=== PATIENT | female | born 1960 | race Hispanic/Latino ===

== ENCOUNTER 2017-09-23 16:58 | Inpatient (IN) | payer BC ==
--- NOTE | 2017-09-23 18:03 | RAD ---
PROCEDURE: CHEST RADIOGRAPH, 1 VIEW HISTORY: chest pain COMPARISON: None available. FINDINGS: LUNGS: Clear. PLEURA: No pneumothorax or pleural fluid seen. CARDIOVASCULAR: Normal. OSSEOUS STRUCTURES: No significant abnormalities. VISUALIZED UPPER ABDOMEN: Normal. OTHER FINDINGS: None. IMPRESSION: No active disease.
[2017-09-23 18:15] LABS: BASO % 0.3 % (0.0-2.0); EOS % 0.1 % (0.0-4.0); HEMATOCRIT 41.4 % (34.0-47.0); LYMPH # 0.9 K/uL (1.0-4.3); LYMPH % 6.8 % (20.0-40.0); MEAN CELL VOLUME 84.7 fl (81.0-99.0); MEAN CORPUSCULAR HEMOGLOBIN 28.3 pg (27.0-31.0); MEAN CORPUSCULAR HGB CONC 33.4 g/dL (33.0-37.0); MONO # 0.5 K/uL (0.0-0.8); MONO % 3.8 % (0.0-10.0); NEUT # 11.7 K/uL (1.8-7.0); PLATELET COUNT 284 K/uL (130-400); WHITE BLOOD COUNT 13.1 K/uL (4.8-10.8)
--- NOTE | 2017-09-23 18:20 | ED PDOC ---
HPI: Chest Pain Time Seen by Provider: 09/23/17 17:12 Chief Complaint (Nursing): Chest Pain Chief Complaint (Provider): Chest Pain History Per: Patient History/Exam Limitations: no limitations Onset/Duration Of Symptoms: Days (x1) Current Symptoms Are (Timing): Still Present Quality: "Pain" Additional Complaint(s): Anya Garcia, a 57 year old female with a past medical history of hypertension presents to the ED complaining of anterior chest pain which started yesterday. As per patient the pain stopped but returned again today. She states that the pain radiates to her right shoulder and she is also having some back pain. The patient reports that she is currently getting over a cold so she has a residual cough. Denies syncope, leg swelling and palpitations. PMD: Edward Vazquez V - Risk Factors TAD Risk Factors: Pos: Hypertension Past Medical History Reviewed: Historical Data, Nursing Documentation, Vital Signs Vital Signs: Last Vital Signs Temp 97.9 F 09/23/17 17:07 Pulse 67 09/23/17 19:56 Resp 18 09/23/17 19:56 BP 105/63 09/23/17 19:56 Pulse Ox 99 09/23/17 21:18 - Medical History PMH: HTN - Surgical History Surgical History: No Surg Hx - Family History Family History: States: Unknown Family Hx - Social History Current smoker - smoking cessation education provided: No Ex-Smoker (has not smoked in the last 12 months): No Alcohol: None Drugs: Denies - Allergies Allergies/Adverse Reactions: Allergies Allergy/AdvReac Type Severity Reaction Status Date / Time No Known Allergies Allergy Verified 01/03/17 19:32 SIA Risk Score for UA/NSTEMI - SIA Risk Score Age > 64: NO 3 or more CAD Risk Factors: NO Known CAD (Stenosis greater than 50%): NO Aspirin use in past 7 days: NO Severe Angina: YES EKG ST changes greater than 0.5mm: NO Positive Cardiac Marker: NO SIA Score: 1 Risk %: 5% Wells Criteria for PE - Wells Criteria for Pulmonary Embolism Clinical Signs and Symptoms of DVT: No P.E is #1 Diagnosis, or Equally Likely: No Heart Rate >100: No Immobilization at least 3 days;Surgery previous 4 weeks: No Previous, objectively diagnosed PE or DVT: No Hemoptysis: No Malignancy w/treatment within 6 months, or palliative: No Total Score: 0 Review of Systems ROS Statement: Except As Marked, All Systems Reviewed And Found Negative Cardiovascular: Positive for: Chest Pain (anterior radiates to right shoulder). Negative for: Palpitations Musculoskeletal: Positive for: Back Pain, Other (no leg swelling) Neurological: Positive for: Dizziness Physical Exam - Reviewed Nursing Documentation Reviewed: Yes Vital Signs Reviewed: Yes - Physical Exam Appears: Positive for: Non-toxic, No Acute Distress Head Exam: Positive for: ATRAUMATIC, NORMAL INSPECTION, NORMOCEPHALIC Skin: Positive for: Normal Color, Warm, Dry. Negative for: Rash Eye Exam: Positive for: Normal appearance, EOMI, PERRL. Negative for: Nystagmus ENT: Positive for: Normal ENT Inspection Neck: Positive for: Normal, Painless ROM, Supple Cardiovascular/Chest: Positive for: Regular Rate, Rhythm, Chest Non Tender. Negative for: Tachycardia Respiratory: Positive for: Normal Breath Sounds. Negative for: Crackles, Rales , Rhonchi, Stridor, Wheezing, Respiratory Distress Gastrointestinal/Abdominal: Positive for: Normal Exam, Bowel Sounds, Soft. Negative for: Tenderness, Guarding, Rebound Back: Positive for: Normal Inspection. Negative for: L CVA Tenderness, R CVA Tenderness Extremity: Positive for: Normal ROM, Capillary Refill (capilary refills normal) . Negative for: Tenderness, Deformity, Swelling Neurologic/Psych: Positive for: Alert, Oriented, Gait - Laboratory Results Result Diagrams: 09/23/17 18:00 09/23/17 18:00 - ECG ECG Rhythm: Positive for: Normal QRS, Normal ST Segment, Sinus Bradycardia (58 bpm) O2 Sat by Pulse Oximetry: 99 (RA) Pulse Ox Interpretation: Normal - Physician Consult Information Time Consulting Physican Contacted: 19:40 Physician Contacted: Nba Schwartz - Core Measure Core Measure Indicators: Chest Pain - Critical Care Total Time (In Min): 30 Medical Decision Making Medical Decision Makin Initial Impression 57 y/o female presenting with anterior chest pain differentials: ACS, Thoracic/ Aortic dissection Initial Plan: * EKG * BMP * Troponin I * CBC * D-Dimer * CXR * Reevaluation EKG Performed: * Sinus bradycardia * Normal QRS * No ST changes * Rate 58 1943 - Reevaluation Troponin elevated. EKG repeated: NSR * normal QRS * Normal ST segments * T wave inversion in V2 * rate [address] Lee (PMD and superintendent measurement) who also reviewed the patient's EKG and recommends treatment for NSTEMI and also recommends giving the patient plavix, aspirin, lovenox and nitroglycerin. Patient will be admitted to ICU for cardiac cath tomorrow. Admission was discussed with Dr. Schwartz hospitalist/metalizing machine operator. Scribe Attestation Documented by Adeline Beckham acting as a scribe for Angeles Foreman MD. Provider Attestation All medical record entries made by the Scribe were at my direction and personally dictated by me. I have reviewed the chart and agree that the record accurately reflects my personal performance of the history, physical exam, medical decision making, and the department course for this patient. I have also personally directed, reviewed, and agree with the discharge instructions and disposition. Disposition - Clinical Impression Clinical Impression: NSTEMI (non-ST elevated myocardial infarction) - Patient ED Disposition Is Patient to be Admitted: Yes Discussed With DrAnyi: Edward Rodriguez Doctor Will See Patient In The: Hospital Counseled Patient/Family Regarding: Studies Performed, Diagnosis - Disposition Disposition Time: 19:43 Condition: GUARDED - Pt Status Changed To: Hospital Disposition Of: Inpatient - Admit Certification Admit to Inpatient:: After my assessment, the patient will require hospitalization for at least two midnights. This is because of the severity of symptoms shown, intensity of services needed, and/or the medical risk in this patient being treated as an outpatient. - POA Present On Arrival: None
[2017-09-23 18:27] LABS: BLOOD UREA NITROGEN 14 mg/dl (7-17); CALCIUM 9.5 mg/dL (8.4-10.2); CARBON DIOXIDE 26 mmol/L (22-30); CHLORIDE 106 mmol/L (98-107); GFR AFRICAN-AMERICAN > 60; GLUCOSE,RANDOM 108 mg/dL (65-105); POTASSIUM 4.3 MMOL/L (3.6-5.0); SODIUM 141 mmol/l (132-148)
[2017-09-23] MEDS ORDERED: Enoxaparin 100 mg Syringe SC STA (19:34)
--- NOTE | 2017-09-23 19:49 | CP.PCM.CON ---
History of Present Illness - History of Present Illness History of Present Illness: Reason for Consult: Critical care management Chief Complaint: Chest Pain The Patient was seen and examined in the ED HPI: 57 years old female with no significant past medical hx comes with 2 days of nonspecific chest pain, localized about the distal sternum and radiating to the right shoulder and upper right back. Began at rest but ceased after some time. the pain was present when she awoke in the next AM and continued. It was associated with nausea and she tried to make herself vomit by using her finger. No SOB nor Diaphoresis She has no hx of Diabetes, HTN, she is a former smoker and has family hx of heart attack. She also is recovering from a common cold. 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 absent: Anorexia, Chills, Fever, Headache, Lethargy - EENT Eyes: Requires Corrective Lenses. absent: Blurred Vision, Diplopia, Floaters, Sees Flashes Ears: absent: Decreased Hearing, Ear Discharge, Tinnitus Nose/Mouth/Throat: absent: Epistaxis, Nasal Congestion, Nasal Discharge, Sinus Pain, Sinus Pressure - Cardiovascular Cardiovascular: Chest Pain at Rest. absent: Dyspnea, Edema, Lightheadedness - Respiratory Respiratory: absent: Cough, Dyspnea on Exertion, Wheezing, Stridor - Gastrointestinal Gastrointestinal: Nausea, Vomiting. absent: Abdominal Pain, Constipation, Diarrhea - Genitourinary Genitourinary: absent: Dysuria, Flank Pain, Hematuria, Urinary Frequency - Musculoskeletal Musculoskeletal: absent: Arthralgias, Back Pain, Muscle Weakness Additional comments: Pain to both thighs - Integumentary Integumentary: absent: Pruritus, Rash, Skin Ulcer, Sores, Striae, Swelling - Neurological Neurological: absent: Confusion, Dizziness, Focal Weakness, Weakness - Psychiatric Psychiatric: Anxiety. absent: Depression, Panic Attacks - Endocrine Endocrine: absent: Palpitations, Polydipsia, Polyphagia, Polyuria - Hematologic/Lymphatic Hematologic: absent: Easy Bleeding, Easy Bruising Past Patient History - Past Medical History & Family History Past Medical History?: Yes - Past Social History Smoking Status: Former Smoker Chewing Tobacco Use: No Cigar Use: No Alcohol: None Drugs: Denies Home Situation {Lives}: With Family - CARDIAC Hx Hypertension: Yes - PULMONARY Hx Respiratory Disorders: No - NEUROLOGICAL Hx Neurological Disorder: No - HEENT Hx HEENT Problems: No - RENAL Hx Chronic Kidney Disease: No - ENDOCRINE/METABOLIC Hx Endocrine Disorders: No - HEMATOLOGICAL/ONCOLOGICAL Hx Blood Disorders: No - INTEGUMENTARY Hx Dermatological Problems: No - MUSCULOSKELETAL/RHEUMATOLOGICAL Hx Musculoskeletal Disorders: No - GASTROINTESTINAL Hx Gastrointestinal Disorders: No - GENITOURINARY/GYNECOLOGICAL Hx Genitourinary Disorders: No - PSYCHIATRIC Hx Psychophysiologic Disorder: No Hx Substance Use: No - SURGICAL HISTORY Hx Surgeries: No - ANESTHESIA Hx Anesthesia: No Meds Allergies/Adverse Reactions: Allergies Allergy/AdvReac Type Severity Reaction Status Date / Time No Known Allergies Allergy Verified 01/03/17 19:32 - Medications Medications: Current Medications Clopidogrel Bisulfate (Plavix) 300 mg PO ONCE ONE Stop: 09/23/17 19:35 Enoxaparin Sodium (Lovenox) 90 mg SC STAT STA PRN Reason: Protocol Stop: 09/23/17 19:35 Physical Exam - Constitutional Appears: No Acute Distress - Head Exam Head Exam: ATRAUMATIC, NORMAL INSPECTION, NORMOCEPHALIC - Eye Exam Eye Exam: EOMI, Normal appearance Pupil Exam: NORMAL ACCOMODATION, PERRL - ENT Exam ENT Exam: Mucous Membranes Moist, Normal Exam, Normal External Ear Exam, Normal Oropharynx - Neck Exam Neck exam: Positive for: Full Rom, Normal Inspection. Negative for: Lymphadenopathy, Tenderness - Respiratory Exam Respiratory Exam: Clear to Auscultation Bilateral. absent: Rales, Rhonchi, Wheezes - Cardiovascular Exam Cardiovascular Exam: REGULAR RHYTHM, RRR, +S1, +S2. absent: Gallop, JVD - GI/Abdominal Exam GI & Abdominal Exam: Normal Bowel Sounds, Soft. absent: Mass, Organomegaly, Tenderness - Rectal Exam Rectal Exam: Deferred - Extremities Exam Extremities exam: Positive for: full ROM, normal inspection. Negative for: calf tenderness, tenderness - Back Exam Back exam: NORMAL INSPECTION. absent: CVA tenderness (R) - Neurological Exam Neurological exam: Alert, CN II-XII Intact, Oriented x3, Reflexes Normal - Psychiatric Exam Psychiatric exam: Normal Affect, Normal Mood - Skin Skin Exam: Dry, Normal Color, Urticaria, Warm Results - Vital Signs Recent Vital Signs: Last Vital Signs Temp 97.9 F 09/23/17 17:07 Pulse 71 09/23/17 19:20 Resp 18 09/23/17 19:20 BP 140/83 09/23/17 19:20 Pulse Ox 99 09/23/17 19:48 - Labs Result Diagrams: 09/23/17 18:00 09/23/17 18:00 Labs: Laboratory Results - last 24 hr 09/23/17 09/23/17 09/23/17 18:00 18:00 18:00 WBC 13.1 H RBC 4.90 Hgb 13.8 Hct 41.4 MCV 84.7 MCH 28.3 MCHC 33.4 RDW 13.0 Plt Count 284 MPV 8.0 Neut % (Auto) 89.0 H Lymph % (Auto) 6.8 L [place] % (Auto) 3.8 Eos % (Auto) 0.1 Baso % (Auto) 0.3 Neut # 11.7 H Lymph # 0.9 L [place] # 0.5 Eos # 0.0 Baso # 0.0 D-Dimer, Quantitative 237 H Sodium 141 Potassium 4.3 Chloride 106 Carbon Dioxide 26 Anion Gap 13 BUN 14 Creatinine 0.7 Est GFR ( Amer) > 60 Est GFR (Non-Af Amer) > 60 Random Glucose 108 H Calcium 9.5 Troponin I 4.5700 H* - EKG Data EKG comments: NSR 61/min Peaked Ts in II; III; aVF T inversion in V1-2 - Imaging and Cardiology Chest x-ray Status: Image reviewed by me, Report reviewed by me Additional comment: No infiltrates Assessment & Plan - Assessment and Plan (Free Text) Assessment: #. NSTEMI #. Elevated D Dimer Plan: 57 years old female with no significant past medical hx comes with 2 days of nonspecific chest pain, localized about the distal sternum and radiating to the right shoulder and upper right back. Began at rest but ceased after some time. the pain was present when she awoke in the next AM and continued. It was associated with nausea, no Diaphoresis nor SOB. #. NSTEMI - Consult Dr Rodriguez Cardiology - Plavix - ASA - Lovenox Therapeutic 90mg Sub Q q 12 H -Metoprolol - NTG - Lipitor - Lipid Panel - Follow ECHO - Follow Repeated Troponin #. Elevated D Dimer Could be caused by the NSTEMI. Patient also has pains to both calf muscles - Venous doppler to both lower extremities #. Neutrpophylic Leukocytosis is reactive - Follow CBC #. DVT prophylaxis, with SCD. patient is on Lovenox #. Code Status: Full - Date & Time Date: 09/23/17 Time: 19:49
[2017-09-23 19:59] LABS: NEUTROPHIL 86 % (42-75); REACTIVE LYMPHOCYTES 1 % (0-0); TOTAL CELLS COUNTED 100
[2017-09-23] MEDS ORDERED: Nitroglycerin 2% 15 INCH/30 GM TUBE TOP SCH (20:45)
[2017-09-23] MEDS: Nitroglycerin 2% Ointment Foilpak UD TOP SCH (22:36)
[2017-09-24 02:09] VITALS: BMI 30.9
[2017-09-24] MEDS: Nitroglycerin 2% Ointment Foilpak UD TOP SCH (04:45)
[2017-09-24 05:55] LABS: ALB/GLOB RATIO 1.4 (1.0-2.1); ALKALINE PHOSPHATASE 73 U/L (38-126); ALT/SGPT 52 U/L (9-52); AST/SGOT 102 U/L (14-36); BILIRUBIN,TOTAL 0.5 mg/dl (0.2-1.3); BLOOD UREA NITROGEN 13 mg/dl (7-17); CARBON DIOXIDE 26 mmol/L (22-30); CHLORIDE 109 mmol/L (98-107); CHOLESTEROL 184 mg/dL (0-199); GFR AFRICAN-AMERICAN > 60; GLUCOSE,RANDOM 112 mg/dL (65-105); POTASSIUM 3.8 MMOL/L (3.6-5.0); SODIUM 144 mmol/l (132-148); TOTAL PROTEIN 6.7 G/DL (6.3-8.2)
[2017-09-24 05:57] LABS: BASO % 0.4 % (0.0-2.0); EOS # 0.1 K/uL (0.0-0.7); EOS % 0.6 % (0.0-4.0); LYMPH # 1.8 K/uL (1.0-4.3); MEAN CELL VOLUME 84.9 fl (81.0-99.0); MEAN CORPUSCULAR HEMOGLOBIN 28.4 pg (27.0-31.0); MEAN CORPUSCULAR HGB CONC 33.5 g/dL (33.0-37.0); MEAN PLATELET VOLUME 8.1 fl (7.2-11.7); MONO # 0.7 K/uL (0.0-0.8); MONO % 6.7 % (0.0-10.0); NEUT # 7.4 K/uL (1.8-7.0); NEUT % 74.3 % (50.0-75.0); NRBC % 0.1 % (0.0-0.0); RED CELL DISTRIBUTION WIDTH 12.7 % (11.5-14.5); WHITE BLOOD COUNT 9.9 K/uL (4.8-10.8)
[2017-09-24] MEDS ORDERED: Pneumococcal 23-Valent Vaccine IM ONE (07:23)
[2017-09-24] MEDS ORDERED: Enoxaparin 100 mg Syringe SC SCH (09:00)
--- NOTE | 2017-09-24 09:12 | CP.PCM.HP ---
History of Present Illness - History of Present Illness History of Present Illness: This 57-year- old female came into the emergency room after having had a retrosternal discomfort for approximately 24 hours which waxed and waned over this. And often radiated to her back and was accompanied by severe nausea and occasional retching. There is no prior history of hypertension or diabetes. She's never been a smoker. Her mother had coronary artery disease requiring coronary bypass graft surgery. The patient is physically quite active and has never experienced any effort related chest pain. She denies any chronic illnesses and has not required repeated hospitalizations. At this point the chest discomfort has virtually subsided. She denies any palpitations or shortness of breath and is able to lie virtually flat and speak comfortably. Physical examination shows a young female is alert awake and coherent and afebrile breeds at 14-16 breaths per minutes and has a heart rate of 64 bpm and regular. Her blood pressure was 124/70 mmHg. Her jugular venous pressure was not elevated and there was no edema over her lower extremities. Her extremities were warm nailbeds were pink and there was no central or peripheral cyanosis. The apex was not palpable the first and second heart sounds were normal. There was no gallop there were no rales there was no pericardial rub. Abdomen was soft and the liver and spleen are not palpable. Her electro-cardiogram at admission shows sinus rhythm with mildly inverted T waves in V1 and V2 which over the next couple of hours shows further inversion and prominent T waves and finally this morning they electro-cardiogram shows sinus rhythm with deeply inverted T waves in V1 and V2 and V3 along with aVL. The R waves in V1 and V2 are virtually absent. Her troponin levels are elevated. BUN/creatinine and electrolytes are essentially normal. Her CBC is satisfactory. Impression: Non-ST elevation myocardial infarction involving anteroseptal region probably represents LAD involvement. The patient at this juncture is hemodynamically stable and chest pain free. She has received aspirin and Plavix and got a dose of Lovenox last night. She has received oral beta blockade as well. I have explained to her the urgent need for early coronary angiography which has been arranged for this morning. Present on Admission - Present on Admission Any Indicators Present on Admission: No Past Patient History - Past Medical History & Family History Past Medical History?: Yes - Past Social History Smoking Status: Former Smoker Chewing Tobacco Use: No Cigar Use: No Alcohol: None Drugs: Denies Home Situation {Lives}: With Family - CARDIAC Hx Hypertension: Yes - PULMONARY Hx Respiratory Disorders: No - NEUROLOGICAL Hx Neurological Disorder: No - HEENT Hx HEENT Problems: No - RENAL Hx Chronic Kidney Disease: No - ENDOCRINE/METABOLIC Hx Endocrine Disorders: No - HEMATOLOGICAL/ONCOLOGICAL Hx Blood Disorders: No - INTEGUMENTARY Hx Dermatological Problems: No - MUSCULOSKELETAL/RHEUMATOLOGICAL Hx Musculoskeletal Disorders: No - GASTROINTESTINAL Hx Gastrointestinal Disorders: No - GENITOURINARY/GYNECOLOGICAL Hx Genitourinary Disorders: No - PSYCHIATRIC Hx Psychophysiologic Disorder: No Hx Substance Use: No - SURGICAL HISTORY Hx Surgeries: No - ANESTHESIA Hx Anesthesia: No Meds Allergies/Adverse Reactions: Allergies Allergy/AdvReac Type Severity Reaction Status Date / Time No Known Allergies Allergy Verified 01/03/17 19:32 Results - Vital Signs Recent Vital Signs: Last Vital Signs Temp 98.3 F 09/24/17 04:00 Pulse 52 L 09/24/17 06:00 Resp 16 09/24/17 06:00 BP 112/58 L 09/24/17 06:00 Pulse Ox 98 09/24/17 06:00 - Labs Result Diagrams: 09/24/17 04:30 09/24/17 04:30 Labs: Laboratory Results - last 24 hr 09/23/17 09/23/17 09/23/17 18:00 18:00 18:00 WBC 13.1 H RBC 4.90 Hgb 13.8 Hct 41.4 MCV 84.7 MCH 28.3 MCHC 33.4 RDW 13.0 Plt Count 284 MPV 8.0 Neut % (Auto) 89.0 H Lymph % (Auto) 6.8 L [place] % (Auto) 3.8 Eos % (Auto) 0.1 Baso % (Auto) 0.3 Neut # 11.7 H Lymph # 0.9 L [place] # 0.5 Eos # 0.0 Baso # 0.0 Neutrophils % (Manual) 86 H Lymphocytes % (Manual) 11 L Reactive Lymphs % 1 H Monocytes % (Manual) 2 Platelet Estimate Normal RBC Morphology Normal D-Dimer, Quantitative 237 H Sodium 141 Potassium 4.3 Chloride 106 Carbon Dioxide 26 Anion Gap 13 BUN 14 Creatinine 0.7 Est GFR ( Amer) > 60 Est GFR (Non-Af Amer) > 60 Random Glucose 108 H Calcium 9.5 Total Bilirubin AST ALT Alkaline Phosphatase Troponin I 4.5700 H* Total Protein Albumin Globulin Albumin/Globulin Ratio Triglycerides Cholesterol LDL Cholesterol Direct HDL Cholesterol 09/24/17 09/24/17 04:30 04:30 WBC 9.9 RBC 4.60 Hgb 13.1 Hct 39.0 MCV 84.9 MCH 28.4 MCHC 33.5 RDW 12.7 Plt Count 269 MPV 8.1 Neut % (Auto) 74.3 Lymph % (Auto) 18.0 L [place] % (Auto) 6.7 Eos % (Auto) 0.6 Baso % (Auto) 0.4 Neut # 7.4 H Lymph # 1.8 [place] # 0.7 Eos # 0.1 Baso # 0.0 Neutrophils % (Manual) Lymphocytes % (Manual) Reactive Lymphs % Monocytes % (Manual) Platelet Estimate RBC Morphology D-Dimer, Quantitative Sodium 144 Potassium 3.8 Chloride 109 H Carbon Dioxide 26 Anion Gap 13 BUN 13 Creatinine 0.7 Est GFR ( Amer) > 60 Est GFR (Non-Af Amer) > 60 Random Glucose 112 H Calcium 9.0 Total Bilirubin 0.5 AST 102 H ALT 52 Alkaline Phosphatase 73 Troponin I 10.3000 H* Total Protein 6.7 Albumin 3.9 Globulin 2.8 Albumin/Globulin Ratio 1.4 Triglycerides 138 Cholesterol 184 LDL Cholesterol Direct 104 HDL Cholesterol 56
--- NOTE | 2017-09-24 19:09 | CP.PCM.PN ---
Subjective - Date & Time of Evaluation Date of Evaluation: 09/24/17 Time of Evaluation: 19:10 - Subjective Subjective: Patient is 57 Years old Female with no significant past medical hx Who presented with 2 days of nonspecific chest pain, localized about the distal sternum and radiating to the right shoulder and upper right back. Admitted to the ICU for NSTMI Patient was transfer to [facility] early this morning before I examined her, Patient underwent cardiac cath and will stay there overnight. Objective - Vital Signs/Intake and Output Vital Signs (last 24 hours): Temp Pulse Resp BP Pulse Ox 98.6 F 55 L 21 110/67 96 09/24/17 08:00 09/24/17 08:00 09/24/17 08:00 09/24/17 08:00 09/24/17 08:00 Intake and Output: 09/24/17 09/25/17 18:59 06:59 Intake Total 30 Balance 30 - Medications Medications: Current Medications Aspirin (Ecotrin) 81 mg PO DAILY [facility] Last Admin: 09/24/17 08:25 Dose: 81 mg Atorvastatin Calcium (Lipitor) 20 mg PO DAILY [facility] Last Admin: 09/24/17 10:18 Dose: Not Given Clopidogrel Bisulfate (Plavix) 75 mg PO DAILY [facility] Last Admin: 09/24/17 08:25 Dose: 75 mg Metoprolol Tartrate (Lopressor) 6.25 mg PO Q12 [facility] Last Admin: 09/24/17 10:18 Dose: Not Given Ondansetron HCl (Zofran Inj) 4 mg IVP Q4 PRN PRN Reason: Nausea/Vomiting Last Admin: 09/23/17 20:00 Dose: 4 mg - Labs Labs: 09/24/17 04:30 09/24/17 04:30
--- NOTE | 2017-09-25 12:05 | CARD ---
APPROVED REPORT EKG Measurement Heart [id number] <Conclusion> Sinus bradycardia Septal infarct, age undetermined Abnormal ECG
--- NOTE | 2017-09-25 12:08 | CARD ---
APPROVED REPORT EKG Measurement Heart [id number] <Conclusion> Sinus bradycardia with sinus arrhythmia Otherwise normal ECG
--- NOTE | 2017-09-26 08:25 | CP.PCM.PN ---
Subjective - Date & Time of Evaluation Date of Evaluation: 09/26/17 Time of Evaluation: 08:10 - Subjective Subjective: Has returned to [facility] from [facility] yesterday and has remained free of any symptoms Saw the pt yesterday in ICU around 5PM, she was stable Was sent to telemetry last evening Slept well, telemetry shows stable sinus rhythm at physiologic HR ( pt on Metoprolol) HR 62 BPM with BP 114/70 mm Hg No orthostatic changes JVP flat, no oedema over feet No rales, no gallop To have echocard today Have encouraged pt to ambulate Objective - Vital Signs/Intake and Output Vital Signs (last 24 hours): Temp Pulse Resp BP Pulse Ox 98.6 F 63 20 105/70 98 09/26/17 08:00 09/26/17 08:00 09/26/17 08:00 09/26/17 08:00 09/26/17 08:00 Intake and Output: 09/26/17 09/26/17 06:59 18:59 Intake Total 240 Balance 240 - Medications Medications: Current Medications Aspirin (Ecotrin) 81 mg PO DAILY [facility] Last Admin: 09/25/17 15:47 Dose: 81 mg Atorvastatin Calcium (Lipitor) 20 mg PO DAILY [facility] Last Admin: 09/25/17 15:47 Dose: 20 mg Clopidogrel Bisulfate (Plavix) 75 mg PO DAILY [facility] Last Admin: 09/25/17 15:48 Dose: 75 mg Metoprolol Tartrate (Lopressor) 6.25 mg PO Q12 [facility] Last Admin: 09/25/17 21:01 Dose: 6.25 mg Ondansetron HCl (Zofran Inj) 4 mg IVP Q4 PRN PRN Reason: Nausea/Vomiting Last Admin: 09/23/17 20:00 Dose: 4 mg - Labs Labs: 09/24/17 04:30 09/24/17 04:30
--- NOTE | 2017-09-26 12:05 | CARD ---
APPROVED REPORT EXAM: Two-dimensional and M-mode echocardiogram with Doppler and color Doppler. Other Information Quality : GoodRhythm : NSR INDICATION Non STEMI 2D DIMENSIONS IVSd1.43 (0.7-1.1cm)LVDd4.00 (3.9-5.9cm) LVOT Diameter1.97 (1.8-2.4cm)PWd1.06 (0.7-1.1cm) IVSs1.42 (0.8-1.2cm)LVDs3.05 (2.5-4.0cm) FS (%) 23.9 %PWs1.45 (0.8-1.2cm) M-Mode DIMENSIONS Left Atrium (MM)3.62 (2.5-4.0cm)IVSd1.03 (0.7-1.1cm) Aortic Root3.15 (2.2-3.7cm)LVDd5.59 (4.0-5.6cm) Aortic Cusp Exc.2.03 (1.5-2.0cm)PWd1.06 (0.7-1.1cm) IVSs1.47 cmFS (%) 39 % LVDs3.41 (2.0-3.8cm)PWs1.26 cm Mitral Valve MV E Ayleeufq96.7cm/sMV DECEL [id number] A Jzlqxltd57.9cm/s MV [id number]/A ratio0.5MVA (PHT)2.13cm2 TDI Lateral E' Peak V7.09cm/sMedial E' Peak V5.87cm/sE/Lateral E'5.0 E/Medial E'6.1 Tricuspid Valve TR Peak Ixdrwaxr600px/sRAP [id number] Peak Gr.20mmHg [id number] LEFT VENTRICLE The left ventricle is normal size. There is normal left ventricular wall thickness. Left ventricle systolic function is mildly impaired. The LVEF is 40-45% There is mild anterior wall, anteroseptal and apical hypokinesis. Transmitral Doppler flow pattern is Grade I-abnormal relaxation pattern. No left ventricle thrombus noted on this study. There is no ventricular septal defect visualized. There is no left ventricular aneurysm. There is no mass noted in the left ventricle. RIGHT VENTRICLE The right ventricle is normal size. There is normal right ventricular wall thickness. The right ventricular systolic function is normal. ATRIA The left atrium size is normal. The right atrium size is normal. The interatrial septum is intact with no evidence for an atrial septal defect. AORTIC VALVE The aortic valve is normal in structure. No aortic regurgitation is present. There is no aortic valvular stenosis. There is no aortic valvular vegetation. MITRAL VALVE The mitral valve is normal in structure. There is no evidence of mitral valve prolapse. There is no mitral valve stenosis. There is no mitral valve regurgitation noted. TRICUSPID VALVE The tricuspid valve is normal in structure. There is no tricuspid valve regurgitation noted. There is no tricuspid valve prolapse or vegetation. There is no tricuspid valve stenosis. PULMONIC VALVE The pulmonary valve is normal in structure. There is no pulmonic valvular regurgitation. There is no pulmonic valvular stenosis. GREAT VESSELS The aortic root is normal in size. The ascending aorta is normal in size. The IVC is normal in size and collapses >50% with inspiration. PERICARDIAL EFFUSION The pericardium appears normal. There is no pleural effusion. <Conclusion> Mildly reduced LV systolic function LVEF 40-45% LAD regional wall motion abnormality Impaired diastolic relaxation
--- NOTE | 2017-09-26 12:34 | US ---
PROCEDURE: Print all Bilateral lower extremity venous duplex Doppler. HISTORY: Pain to both calf muscles/ Elevated D Dimer COMPARISON: None available. TECHNIQUE: Bilateral common femoral, superficial femoral, popliteal and posterior tibial veins were evaluated. Flow was assessed with color Doppler, compressibility, assessment of phasic flow and augmentation response. FINDINGS: COMMON FEMORAL VEIN: Right CFV: Unremarkable. Left CFV: Unremarkable. SUPERFICIAL FEMORAL VEIN: Right SFV: Unremarkable. Left SFV: Unremarkable. POPLITEAL VEIN: Right Popliteal: Unremarkable. Left Popliteal: Unremarkable. POSTERIOR TIBIAL VEIN: Right PTV: Unremarkable. Left PTV: Unremarkable. OTHER FINDINGS: None. IMPRESSION: No evidence of deep venous thrombosis.
[2017-09-27 05:40] VITALS: TEMP 98.3
[2017-09-27 05:50] LABS: HEMATOCRIT 38.2 % (34.0-47.0); MEAN CELL VOLUME 85.6 fl (81.0-99.0); MEAN CORPUSCULAR HEMOGLOBIN 28.7 pg (27.0-31.0); MEAN CORPUSCULAR HGB CONC 33.5 g/dL (33.0-37.0); RED CELL DISTRIBUTION WIDTH 13.2 % (11.5-14.5); WHITE BLOOD COUNT 9.4 K/uL (4.8-10.8)
[2017-09-27 06:16] LABS: ALB/GLOB RATIO 1.4 (1.0-2.1); ALKALINE PHOSPHATASE 68 U/L (38-126); ALT/SGPT 55 U/L (9-52); AST/SGOT 51 U/L (14-36); BILIRUBIN,TOTAL 0.5 mg/dl (0.2-1.3); BLOOD UREA NITROGEN 16 mg/dl (7-17); CALCIUM 9.2 mg/dL (8.4-10.2); CARBON DIOXIDE 28 mmol/L (22-30); CHLORIDE 108 mmol/L (98-107); GFR AFRICAN-AMERICAN > 60; GLUCOSE,RANDOM 99 mg/dL (65-105); POTASSIUM 4.1 MMOL/L (3.6-5.0); SODIUM 143 mmol/l (132-148); TOTAL PROTEIN 6.5 G/DL (6.3-8.2)
[2017-09-27 08:05] VITALS: BP 103/69; PULSE 73; RESP 18
[2017-09-27 08:16] VITALS: O2SAT 18
--- NOTE | 2017-09-27 09:52 | CP.PCM.PN ---
Subjective - Date & Time of Evaluation Date of Evaluation: 09/27/17 Time of Evaluation: 08:50 - Subjective Subjective: Ambulated freely in the corridor without any dyspnoea or chest pain Telemetry shows sinus rhythm at60-7- BPM BP 118/64 mm Hg (Sitting in a chair) JVP flat, no oedema over feet No pericardial rub or murmur No rales Echo images reviewed Apical half of the septum hypokinetic and fails to thicken LVEF 40-45% Pt to go home today. Scripts sent to Pharmacy PCI of OM1 planned for Oct 10 Pt to see me 9-10 days later in the office Objective - Vital Signs/Intake and Output Vital Signs (last 24 hours): Temp Pulse Resp BP Pulse Ox 98.3 F 73 18 103/69 18 L 09/27/17 08:12 09/27/17 09:05 09/27/17 08:00 09/27/17 09:05 09/27/17 08:12 - Medications Medications: Current Medications Aspirin (Ecotrin) 81 mg PO DAILY [facility] Last Admin: 09/27/17 09:05 Dose: 81 mg Atorvastatin Calcium (Lipitor) 20 mg PO DAILY [facility] Last Admin: 09/27/17 09:05 Dose: 20 mg Clopidogrel Bisulfate (Plavix) 75 mg PO DAILY [facility] Last Admin: 09/27/17 09:05 Dose: 75 mg Metoprolol Tartrate (Lopressor) 6.25 mg PO Q12 [facility] Last Admin: 09/27/17 09:05 Dose: 6.25 mg Ondansetron HCl (Zofran Inj) 4 mg IVP Q4 PRN PRN Reason: Nausea/Vomiting Last Admin: 09/23/17 20:00 Dose: 4 mg - Labs Labs: 09/27/17 04:47 09/27/17 04:47
--- NOTE | 2017-09-27 09:58 | CP.PCM.DIS ---
Provider - Provider Date of Admission: 09/23/17 19:35 Attending physician: Edward Rodriguez MD Time Spent in preparation of Discharge (in minutes): 30 Hospital Course - Lab Results Lab Results: Micro Results 09/23/17 09:55 Nose MRSA Culture (Admit) - Final MRSA NOT DETECTED Most Recent Lab Values WBC 9.4 K/uL (4.8-10.8) 09/27/17 04:47 RBC 4.46 Mil/uL (3.80-5.20) 09/27/17 04:47 Hgb 12.8 g/dL (12.0-16.0) 09/27/17 04:47 Hct 38.2 % (34.0-47.0) 09/27/17 04:47 MCV 85.6 fl (81.0-99.0) 09/27/17 04:47 MCH 28.7 pg (27.0-31.0) 09/27/17 04:47 MCHC 33.5 g/dL (33.0-37.0) 09/27/17 04:47 RDW 13.2 % (11.5-14.5) 09/27/17 04:47 Plt Count 250 K/uL (130-400) 09/27/17 04:47 MPV 8.1 fl (7.2-11.7) 09/24/17 04:30 Neut % (Auto) 74.3 % (50.0-75.0) 09/24/17 04:30 Lymph % (Auto) 18.0 % (20.0-40.0) L 09/24/17 04:30 Charles % (Auto) 6.7 % (0.0-10.0) 09/24/17 04:30 Eos % (Auto) 0.6 % (0.0-4.0) 09/24/17 04:30 Baso % (Auto) 0.4 % (0.0-2.0) 09/24/17 04:30 Neut # 7.4 K/uL (1.8-7.0) H 09/24/17 04:30 Lymph # 1.8 K/uL (1.0-4.3) 09/24/17 04:30 Charles # 0.7 K/uL (0.0-0.8) 09/24/17 04:30 Eos # 0.1 K/uL (0.0-0.7) 09/24/17 04:30 Baso # 0.0 K/uL (0.0-0.2) 09/24/17 04:30 Neutrophils % (Manual) 86 % (42-75) H 09/23/17 18:00 Lymphocytes % (Manual) 11 % (20-50) L 09/23/17 18:00 Reactive Lymphs % 1 % (0-0) H 09/23/17 18:00 Monocytes % (Manual) 2 % (0-10) 09/23/17 18:00 Platelet Estimate Normal (NORMAL) 09/23/17 18:00 RBC Morphology Normal (NORMAL) 09/23/17 18:00 D-Dimer, Quantitative 237 ng/mlDDU (0-230) H 09/23/17 18:00 Sodium 143 mmol/l (132-148) 09/27/17 04:47 Potassium 4.1 MMOL/L (3.6-5.0) 09/27/17 04:47 Chloride 108 mmol/L (98-107) H 09/27/17 04:47 Carbon Dioxide 28 mmol/L (22-30) 09/27/17 04:47 Anion Gap 11 (10-20) 09/27/17 04:47 BUN 16 mg/dl (7-17) 09/27/17 04:47 Creatinine 0.8 mg/dl (0.7-1.2) 09/27/17 04:47 Est GFR ( Amer) > 60 09/27/17 04:47 Est GFR (Non-Af Amer) > 60 09/27/17 04:47 Random Glucose 99 mg/dL (65-105) 09/27/17 04:47 Calcium 9.2 mg/dL (8.4-10.2) 09/27/17 04:47 Total Bilirubin 0.5 mg/dl (0.2-1.3) 09/27/17 04:47 AST 51 U/L (14-36) H D 09/27/17 04:47 ALT 55 U/L (9-52) H 09/27/17 04:47 Alkaline Phosphatase 68 U/L (38-126) 09/27/17 04:47 Troponin I 10.3000 ng/mL (0.00-0.120) H* 09/24/17 04:30 Total Protein 6.5 G/DL (6.3-8.2) 09/27/17 04:47 Albumin 3.7 g/dL (3.5-5.0) 09/27/17 04:47 Globulin 2.7 gm/dL (2.2-3.9) 09/27/17 04:47 Albumin/Globulin Ratio 1.4 (1.0-2.1) 09/27/17 04:47 Triglycerides 138 mg/DL (0-149) 09/24/17 04:30 Cholesterol 184 mg/dL (0-199) 09/24/17 04:30 LDL Cholesterol Direct 104 mg/dL (0-129) 09/24/17 04:30 HDL Cholesterol 56 MG/DL (30-70) 09/24/17 04:30 - Hospital Course Hospital Course: This 57-year- old female came to the emergency room complaining of retrosternal discomfort which radiated to her back and neck which had lasted off and on for almost 24 hours before she came to the emergency room. The patient has no prior history of cardiac illness and has never required antihypertensives for anti-diabetic and has never been a smoker. 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 She has a strong family history of vascular disease in that her mother had required coronary bypass graft surgery. Upon admission to the hospital the patient was found to have an abnormal electrocardiogram showing inversion of T waves in leads V1 and V2 strongly suggestive of active myocardial ischemia which in couple of hours progress to move very pronounced inverted T waves in those 2 leads. There was also T-wave inversion in lead aVL. At the same time her troponins were elevated. The patient was given subcutaneous does off Lovenox and also given aspirin and Plavix and admitted to the hospital. She remained chest pain free and hemodynamically stable and was promptly sent for coronary angiography next morning. The coronary angiography demonstrated a totally occluded left anterior descending artery in its proximal course which was successfully angioplastied and stented. Also noted was an 80% ostial lesion of the first marginal branch of left circumflex artery. This was not addressed at this intervention. The patient was kept on intravenous drip of Integrilin to prevent reocclusion of the drug-eluting stent which was put in place at the ostium of left anterior descending artery. The patient was observed overnight in intensive care unit and then transferred back to [facility]. The patient remained chest pain free and hemodynamically stable. She underwent an echocardiogram which demonstrated evidence of a hypokinetic segment involving the apical half of the septum while the remaining left ventricular segments moved normally. Overall left ventricle systolic function was mildly depressed with an ejection fraction in the range of 40-45%. Her lipid profile at admission demonstrated LDL level of 104 mg percent and HDL of 56 mg percent. Her BUN/creatinine an hemoglobin and hematocrit were normal. The patient was sent home taking aspirin with Plavix as well as 20 mg of atorvastatin and 25 mg of metoprolol succinate every day. The patient has an appointment to have her follow-up PCI on October 10. She will see me in the office for a follow-up examination on October 19. Her prescriptions were sent to her pharmacy. Diabetic medications and activities were explained to her. Her final diagnosis was an acute anterior wall myocardial infarction. Discharge Exam - Head Exam Head Exam: ATRAUMATIC, NORMAL INSPECTION, NORMOCEPHALIC Discharge Plan - Follow Up Plan Condition: GUARDED Disposition: HOME/ ROUTINE
--- NOTE | 2017-09-27 17:47 | CARD ---
APPROVED REPORT EKG Measurement Heart [id number] <Conclusion> Normal sinus rhythm Septal infarct, age undetermined T wave abnormality, consider anterior ischemia Abnormal ECG
== END 2017-09-27 11:00 | disposition home or self-care (01) | DRG 247 ==
LOC: H.ER 16:58 → H.ERHOLD 19:35 → H.ICU/CCU 20:56 → H.TEL 09-25 22:26
PROVIDERS: ADMIT Internal Medicine Cardiovascular Disease; ATTEND Internal Medicine Cardiovascular Disease
PROC: 027034Z Dilation of Coronary Artery, One Artery with Drug-eluting Intraluminal Device, Percutaneous Approach (ICD-10-PCS; principal; 2017-09-24)
DX: I21.4 Non-ST elevation (NSTEMI) myocardial infarction (principal); I25.10 Atherosclerotic heart disease of native coronary artery without angina pectoris; I10 Essential (primary) hypertension; R79.1 Abnormal coagulation profile; Z87.891 Personal history of nicotine dependence; Z82.49 Family history of ischemic heart disease and other diseases of the circulatory system